=== PATIENT | male | born 1940 | race Caucasian/White ===

== ENCOUNTER 2017-09-15 07:17 | Inpatient (IN) | payer OTHER, MEDICAID ==
[~2017-09-15] VITALS: Ht 165.1 cm; Wt 70.8 kg
[2017-09-15 07:17] VITALS: BP_SYST 123
[2017-09-15] MEDS ORDERED: NACL 0.9% 1,000 ML IV ONE (07:30)
[2017-09-15] MEDS ORDERED: ONDANSETRON HCL 4 MG/2 ML VIAL IVP ONE (07:30)
[2017-09-15] MEDS ORDERED: CITA10SO6 PO (07:46)
[2017-09-15] MEDS ORDERED: ECO325 PO (07:46)
[2017-09-15] MEDS ORDERED: FAMO-129 PO (07:46)
[2017-09-15] MEDS ORDERED: CEL20 PO (07:49)
[2017-09-15] MEDS ORDERED: METO50TA7 PO (07:49)
[2017-09-15] MEDS ORDERED: LEVO50TA77 PO (07:49)
[2017-09-15] MEDS ORDERED: LORazepam 2 MG/ML VIAL (FOR ER USE) IVP ONE (08:00)
[2017-09-15] MEDS ORDERED: QUET200T PO (08:11)
[2017-09-15 08:45] LABS: BASOPHILS # (AUTO) 0.3 K/uL (0.0-0.2); BASOPHILS % (AUTO) 2.3 % (0.0-2.0); HEMATOCRIT 40.8 % (36-54); HEMOGLOBIN 13.5 g/dL (14.0-18.0); LYMPHOCYTES # (AUTO) 0.2 K/uL (1.0-5.5); LYMPHOCYTES % (AUTO) 1.4 % (20.5-51.5); MEAN CORPUSCULAR HEMOGLOBIN 28 pg (27-31); MEAN CORPUSCULAR HGB CONC 33 % (32-36); MEAN CORPUSCULAR VOLUME 85 fL (79.0-98.0); MONOCYTES # (AUTO) 0.4 K/uL (0.0-1.0); MONOCYTES % (AUTO) 3.6 % (1.7-9.3); NEUTROPHILS # (AUTO) 11.4 K/uL (1.8-7.7); NEUTROPHILS % (AUTO) 92.7 % (40.0-70.0); PLATELET COUNT (AUTO) 209 K/uL (130-430); RED CELL DISTRIBUTION WIDTH 15.6 % (9.0-15.0); WHITE BLOOD COUNT (AUTO) 12.3 K/uL (4.8-10.8)
[2017-09-15 08:50] LABS: ANION GAP 7 (5-15); CHLORIDE 100 mmol/L (98-107); CREATININE 1.16 mg/dL (0.55-1.30); GLUCOSE 152 mg/dL (70-99); POTASSIUM 3.8 mmol/L (3.5-5.1); SODIUM SERUM 135 mmol/L (136-145); UREA NITROGEN, BLOOD 28 mg/dL (8-21)
[2017-09-15 08:53] LABS: INR 1.3 (0.80-1.20); PROTHROMBIN TIME 13.1 SECS (9.5-12.5)
[2017-09-15 09:06] LABS: ALANINE AMINOTRANSFERASE 26 U/L (12-78); ALBUMIN 3.7 g/dL (3.4-4.8); AMYLASE 49 U/L (0-100); ASPARTATE AMINOTRANSFERASE 28 U/L (10-37); FREE T4 (FREE THYROXINE) 0.9 ng/dL (0.6-1.6); LIPASE 104 U/L (73-393); THYROID STIMULATING HORMONE 1.27 uIu/mL (0.34-4.82); TOTAL BILIRUBIN 0.4 mg/dL (0.0-1.0)
[2017-09-15 09:53] LABS: BILIRUBIN,URINE NEGATIVE (NEGATIVE); CLARITY/URINE HAZY (CLEAR); COLOR,URINE YELLOW (YELLOW); GLUCOSE,URINE NEGATIVE (NEGATIVE); KETONES,URINE NEGATIVE (NEGATIVE); LEUKOCYTE ESTERASE ,URINE 1+ (NEGATIVE); NITRITE, URINE POSITIVE (NEGATIVE); PROTEIN URINE 2+ (NEGATIVE)
[2017-09-15 09:54] LABS: BLOOD, URINE TRACE (NEGATIVE)
[2017-09-15 10:06] LABS: WBC,URINE 20-50 /HPF (0-3)
[2017-09-15 10:07] LABS: BACTERIA,URINE MANY /HPF (None Seen); MUCUS,URINE 1+ /LPF (None Seen)
[2017-09-15] MEDS ORDERED: cefTRIAXone 1 GM IVPB PREMIX 50 ML IV ONE (10:45)
[2017-09-15] MEDS ORDERED: PANTOPRAZOLE SODIUM 40 MG/VIAL (PROTONIX) IVP ONE (11:15)
[2017-09-15 14:53] VITALS: BP_SYST 108
[2017-09-15] MEDS: metroNIDAZOLE 500 mg/NS 100 ML IV SCH ×2 (15:02→21:01)
[2017-09-15] MEDS: LACTOBACILLUS RHAMNOSUS GG 1 CAP CAPSULE PO SCH ×2 (15:30→21:01)
[2017-09-15] MEDS ORDERED: ACETAMINOPHEN 650 MG SUPP.RECT RC PRN (15:30)
[2017-09-15] MEDS ORDERED: ACETAMINOPHEN 325 MG TABLET PO PRN (15:30)
[2017-09-15] MEDS ORDERED: ONDANSETRON HCL 4 MG/2 ML VIAL IVP PRN (15:30)
[2017-09-15] MEDS: IPRATROPIUM/ALBUTEROL SULFATE 3 ML AMPUL.NEB INH SCH ×2 (15:30→21:01)
[2017-09-15] MEDS ORDERED: IPRATROPIUM/ALBUTEROL SULFATE 3 ML AMPUL.NEB INH PRN (15:30)
[2017-09-15] MEDS: DOCUSATE SODIUM 250 MG CAPSULE PO SCH ×2 (15:30→21:01)
[2017-09-15] MEDS: PANTOPRAZOLE SODIUM 40 MG/VIAL (PROTONIX) IVP SCH ×2 (16:44→21:01)
[2017-09-15 16:45] VITALS: BP_SYST 105
[2017-09-15] MEDS: D5LR 1,000 ML IV SCH (16:45)
[2017-09-15] MEDS: LEVOFLOXACIN 500 MG/D5W 100 ML IV SCH (16:45)
[2017-09-15 17:51] VITALS: BP_SYST 105
[2017-09-15] MEDS ORDERED: QUEtiapine FUMARATE 100 MG TABLET PO SCH (18:30)
[2017-09-15 20:00] VITALS: BP_SYST 97
[2017-09-15] MEDS ORDERED: FAMOTIDINE 20 MG TABLET PO SCH (21:00)
[2017-09-15] MEDS ORDERED: NON-FORMULARY MEDICATION (Famotidine 20 MG) PO SCH (21:00)
[2017-09-15] MEDS: LORazepam 2 MG/ML VIAL IVP PRN (21:38)
[2017-09-16] MEDS: IPRATROPIUM/ALBUTEROL SULFATE 3 ML AMPUL.NEB INH SCH ×4 (00:35→20:02)
[2017-09-16 00:57] VITALS: BP_SYST 99
[2017-09-16 04:19] VITALS: BP_SYST 99
[2017-09-16] MEDS: LEVOTHYROXINE SODIUM 0.05 MG TABLET PO SCH (06:02)
[2017-09-16] MEDS: metroNIDAZOLE 500 mg/NS 100 ML IV SCH ×3 (06:02→21:14)
[2017-09-16] MEDS: LORazepam 2 MG/ML VIAL IVP PRN ×3 (06:03→23:49)
[2017-09-16] MEDS: D5LR 1,000 ML IV SCH ×3 (06:15→21:36)
[2017-09-16 06:34] LABS: BASOPHILS % (AUTO) 0.3 % (0.0-2.0); EOSINOPHILS # (AUTO) 0.1 K/uL (0.0-0.4); EOSINOPHILS % (AUTO) 1.5 % (0.0-4.0); HEMATOCRIT 32.6 % (36-54); HEMOGLOBIN 10.8 g/dL (14.0-18.0); LYMPHOCYTES # (AUTO) 0.8 K/uL (1.0-5.5); MEAN CORPUSCULAR HEMOGLOBIN 28 pg (27-31); MEAN CORPUSCULAR HGB CONC 33 % (32-36); MEAN CORPUSCULAR VOLUME 85 fL (79.0-98.0); MONOCYTES # (AUTO) 0.9 K/uL (0.0-1.0); MONOCYTES % (AUTO) 14.3 % (1.7-9.3); NEUTROPHILS # (AUTO) 4.5 K/uL (1.8-7.7); NEUTROPHILS % (AUTO) 71.9 % (40.0-70.0); PLATELET COUNT (AUTO) 143 K/uL (130-430); RED BLOOD CELL COUNT(AUTO) 3.84 MIL/uL (4.2-6.2); RED CELL DISTRIBUTION WIDTH 15.5 % (9.0-15.0); WHITE BLOOD COUNT (AUTO) 6.3 K/uL (4.8-10.8)
[2017-09-16 06:46] LABS: ALANINE AMINOTRANSFERASE 22 U/L (12-78); ALBUMIN 2.7 g/dL (3.4-4.8); ANION GAP 3 (5-15); ASPARTATE AMINOTRANSFERASE 32 U/L (10-37); CHLORIDE 106 mmol/L (98-107); CREATININE 1.13 mg/dL (0.55-1.30); GLUCOSE 134 mg/dL (70-99); POTASSIUM 3.4 mmol/L (3.5-5.1); SODIUM SERUM 137 mmol/L (136-145); UREA NITROGEN, BLOOD 23 mg/dL (8-21)
[2017-09-16 07:05] LABS: INR 1.4 (0.80-1.20); PROTHROMBIN TIME 14.2 SECS (9.5-12.5)
[2017-09-16 07:14] LABS: TOTAL BILIRUBIN 0.3 mg/dL (0.0-1.0)
[2017-09-16 07:24] LABS: CALCIUM 7.5 mg/dL (8.4-11.0)
[2017-09-16 08:00] VITALS: BP_SYST 95
[2017-09-16] MEDS: METOPROLOL SUCCINATE 50 MG TAB.SR.24H (TOPROL XL) PO SCH (09:00)
[2017-09-16] MEDS ORDERED: CITALOPRAM HYDROBROMIDE 20 MG TABLET PO SCH (09:00)
[2017-09-16] MEDS ORDERED: QUEtiapine FUMARATE 100 MG TABLET PO SCH ×2 (09:00→18:00)
[2017-09-16] MEDS ORDERED: ASPIRIN 325 MG TABLET (ECOTRIN) PO SCH (09:00)
[2017-09-16] MEDS ORDERED: MAGNESIUM CITRATE 300 ML ORAL SOLUTION PO ONE (09:30)
[2017-09-16] MEDS ORDERED: NA PHOS,M-B/NA PHOS,DI-BA 118 ML (FLEET ENEMA) RC ONE (09:30)
[2017-09-16] MEDS: LACTOBACILLUS RHAMNOSUS GG 1 CAP CAPSULE PO SCH ×2 (09:34→21:00)
[2017-09-16] MEDS: PANTOPRAZOLE SODIUM 40 MG/VIAL (PROTONIX) IVP SCH ×2 (09:35→21:14)
[2017-09-16] MEDS: DOCUSATE SODIUM 250 MG CAPSULE PO SCH ×2 (09:35→21:00)
[2017-09-16 12:58] VITALS: BP_SYST 101
[2017-09-16] MEDS ORDERED: POTASSIUM CHLORIDE 40 MEQ, LIDOCAINE JECT 2% PF 100 MG 50 MG in NS 250 ML IV ONE (14:00)
[2017-09-16 16:56] VITALS: BP_SYST 148
[2017-09-16] MEDS: LEVOFLOXACIN 500 MG/D5W 100 ML IV SCH (17:32)
[2017-09-16 20:00] VITALS: BP_SYST 135
[2017-09-17 00:32] VITALS: BP_SYST 117
[2017-09-17] MEDS: IPRATROPIUM/ALBUTEROL SULFATE 3 ML AMPUL.NEB INH SCH ×4 (01:00→20:38)
[2017-09-17] MEDS: LORazepam 2 MG/ML VIAL IVP PRN ×4 (03:52→17:15)
[2017-09-17 04:40] VITALS: BP_SYST 125
[2017-09-17] MEDS: metroNIDAZOLE 500 mg/NS 100 ML IV SCH ×2 (06:14→14:10)
[2017-09-17] MEDS: LEVOTHYROXINE SODIUM 0.05 MG TABLET PO SCH (06:44)
[2017-09-17 06:46] LABS: BASOPHILS % (AUTO) 0.5 % (0.0-2.0); EOSINOPHILS # (AUTO) 0.2 K/uL (0.0-0.4); EOSINOPHILS % (AUTO) 4.6 % (0.0-4.0); HEMATOCRIT 33.6 % (36-54); LYMPHOCYTES # (AUTO) 0.9 K/uL (1.0-5.5); LYMPHOCYTES % (AUTO) 18.1 % (20.5-51.5); MEAN CORPUSCULAR HEMOGLOBIN 28 pg (27-31); MEAN CORPUSCULAR HGB CONC 33 % (32-36); MEAN CORPUSCULAR VOLUME 85 fL (79.0-98.0); MONOCYTES # (AUTO) 0.9 K/uL (0.0-1.0); MONOCYTES % (AUTO) 16.5 % (1.7-9.3); NEUTROPHILS # (AUTO) 3.2 K/uL (1.8-7.7); NEUTROPHILS % (AUTO) 60.3 % (40.0-70.0); PLATELET COUNT (AUTO) 157 K/uL (130-430); RED BLOOD CELL COUNT(AUTO) 3.95 MIL/uL (4.2-6.2); RED CELL DISTRIBUTION WIDTH 15.4 % (9.0-15.0); WHITE BLOOD COUNT (AUTO) 5.2 K/uL (4.8-10.8)
[2017-09-17 07:01] LABS: INR 1.3 (0.80-1.20); PROTHROMBIN TIME 13.6 SECS (9.5-12.5)
[2017-09-17 07:17] LABS: ANION GAP 4 (5-15); CALCIUM 7.3 mg/dL (8.4-11.0); CHLORIDE 106 mmol/L (98-107); CREATININE 0.77 mg/dL (0.55-1.30); GLUCOSE 140 mg/dL (70-99); POTASSIUM 4.3 mmol/L (3.5-5.1); SODIUM SERUM 138 mmol/L (136-145); UREA NITROGEN, BLOOD 12 mg/dL (8-21)
[2017-09-17] MEDS: D5LR 1,000 ML IV SCH (07:30)
[2017-09-17] MEDS ORDERED: MIDAZOLAM HCL 5 MG/5 ML VIAL ONE (07:46)
[2017-09-17] MEDS ORDERED: MEPERIDINE HCL/PF 100 MG/ML AMP ONE (07:46)
[2017-09-17 08:12] LABS: TOTAL IRON BIND. CAPACITY 245 ug/dL (250-450)
[2017-09-17 08:15] VITALS: BP_SYST 144
[2017-09-17] MEDS ORDERED: ASPIRIN 325 MG TABLET (ECOTRIN) PO SCH (09:00)
[2017-09-17] MEDS: PANTOPRAZOLE SODIUM 40 MG/VIAL (PROTONIX) IVP SCH ×2 (10:44→21:05)
[2017-09-17 12:06] VITALS: BP_SYST 139
[2017-09-17] MEDS: METOPROLOL SUCCINATE 50 MG TAB.SR.24H (TOPROL XL) PO SCH (12:46)
[2017-09-17] MEDS: DOCUSATE SODIUM 250 MG CAPSULE PO SCH ×2 (12:46→21:05)
[2017-09-17] MEDS: LACTOBACILLUS RHAMNOSUS GG 1 CAP CAPSULE PO SCH ×2 (12:46→21:04)
[2017-09-17 16:08] VITALS: BP_SYST 128
[2017-09-17] MEDS: LEVOFLOXACIN 500 MG/D5W 100 ML IV SCH (17:05)
[2017-09-17] MEDS ORDERED: QUEtiapine FUMARATE 25 MG TABLET PO ONE (18:00)
[2017-09-17] MEDS: SOD FERRIC GLUC COMPLEX/SUC 125 MG in NS 100 ML IV SCH (18:00)
[2017-09-17] MEDS ORDERED: QUEtiapine FUMARATE 100 MG TABLET PO SCH (18:00)
[2017-09-17] MEDS ORDERED: TAMSULOSIN HCL 0.4 MG CAP PO SCH ×2 (18:00→18:11)
[2017-09-17] MEDS: AZITHROMYCIN 500 MG in NS 250 ML IV SCH (18:00)
[2017-09-17] MEDS: cefTRIAXone 1 GM IVPB PREMIX 50 ML IV SCH (18:00)
[2017-09-17 20:00] VITALS: BP_SYST 108
[2017-09-18] VITALS (8 sets, daily range): BP systolic 100–137
[2017-09-18] MEDS: LORazepam 2 MG/ML VIAL IVP PRN (00:25)
[2017-09-18] MEDS: IPRATROPIUM/ALBUTEROL SULFATE 3 ML AMPUL.NEB INH SCH ×3 (01:00→14:18)
[2017-09-18] MEDS: LEVOTHYROXINE SODIUM 0.05 MG TABLET PO SCH (06:17)
[2017-09-18] MEDS: PANTOPRAZOLE SODIUM 40 MG/VIAL (PROTONIX) IVP SCH (08:15)
[2017-09-18] MEDS: METOPROLOL SUCCINATE 50 MG TAB.SR.24H (TOPROL XL) PO SCH (08:15)
[2017-09-18] MEDS: DOCUSATE SODIUM 250 MG CAPSULE PO SCH (08:16)
[2017-09-18] MEDS: LACTOBACILLUS RHAMNOSUS GG 1 CAP CAPSULE PO SCH (08:16)
[2017-09-18] MEDS ORDERED: ASPIRIN 81 MG TABLET(ECOTRIN) PO SCH (09:00)
[2017-09-18] MEDS ORDERED: BALSAM PERU/CASTOR OIL 60 GM OINT...G. TP SCH (09:00)
[2017-09-18 16:11] LABS: FOLATE (FOLIC ACID) 16.5 ng/mL (>3.0)
[2017-09-18] MEDS: SOD FERRIC GLUC COMPLEX/SUC 125 MG in NS 100 ML IV SCH (18:00)
[2017-09-18] MEDS: cefTRIAXone 1 GM IVPB PREMIX 50 ML IV SCH (18:00)
[2017-09-18] MEDS: AZITHROMYCIN 500 MG in NS 250 ML IV SCH (18:00)
== END 2017-09-18 19:19 | disposition home or self-care (01) | DRG 871 ==
LOC: SED 07:17 → STU 11:04 → SMU 09-18 15:09
PROVIDERS: ADMIT Internal Medicine; ATTEND Internal Medicine
PROC: 0DB68ZX Excision of Stomach, Via Natural or Artificial Opening Endoscopic, Diagnostic (ICD-10-PCS; principal; 2017-09-17 08:00)
DX: A41.9 Sepsis, unspecified organism (principal); J18.9 Pneumonia, unspecified organism; E44.0 Moderate protein-calorie malnutrition; K92.2 Gastrointestinal hemorrhage, unspecified; D64.9 Anemia, unspecified; F03.90 Unspecified dementia, unspecified severity, without behavioral disturbance, psychotic disturbance, mood disturbance, and anxiety; D62 Acute posthemorrhagic anemia; N39.0 Urinary tract infection, site not specified; K29.00 Acute gastritis without bleeding; K56.41 Fecal impaction; K44.9 Diaphragmatic hernia without obstruction or gangrene; E03.9 Hypothyroidism, unspecified; F79 Unspecified intellectual disabilities; H91.90 Unspecified hearing loss, unspecified ear; I10 Essential (primary) hypertension; F29 Unspecified psychosis not due to a substance or known physiological condition; E87.6 Hypokalemia; Z68.26 Body mass index [BMI] 26.0-26.9, adult; Z79.82 Long term (current) use of aspirin; Z79.899 Other long term (current) drug therapy
CPT/HCPCS: 36415; 43239; 70450-TC; 71010; 80048; 80053; 81000-TC; 82150-TC; 82272; 82607; 82746; 83540-TC; 83550-TC; 83690-TC; 83735-TC; 84439; 84443-TC; 85025; 85610-TC; 85730-TC; 87040-TC; 87081; 87086; 87186-TC; 88305; 88312; 88313; 93005; 93306; 94640; 96361; 96365; 96375; 99285; C9113; J0456; J0696; J1956; J2060; J2175; J2250; J2405; J2916; J3480; J3490; J7050; J7120